=== PATIENT | male | born 1975 | race Caucasian/White ===

== ENCOUNTER 2017-04-02 08:58 | Observation (INO) | payer OTHER, MEDICAID ==
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
[2017-04-02] MEDS ORDERED: Lidocaine 1% 30 ML SDV INJECT ONE (09:28)
[2017-04-02] MEDS ORDERED: Diphtheria,Pertussis(Acell),Tetanus Vaccine 0.5 ML SDV IM ONE (09:28)
[2017-04-02] MEDS ORDERED: HYDROmorphone 1 MG/ML Syringe IM ONE (09:37)
[2017-04-02 09:38] LABS: CHLORIDE,CL 101 mmol/L (101-111); SODIUM,NA 135 mmol/L (135-145)
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
[2017-04-02] MEDS ORDERED: Sodium Chloride 0.9% 10 ML Syringe FLUSH PRN (14:10)
[2017-04-02] MEDS: Acetaminophen 325 MG Tab PO PRN (15:41)
[2017-04-03] MEDS: Acetaminophen 325 MG Tab PO PRN (00:34)
[2017-04-03] MEDS ORDERED: Enoxaparin 40 MG/0.4 ML Syringe SUBCUT SCH (09:00)
[2017-04-03] MEDS ORDERED: Lisinopril 10 MG Tab PO SCH (09:00)
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
[2017-04-03] MEDS ORDERED: Simvastatin 10 MG Tab PO SCH (21:00)
== END 2017-04-03 11:37 | disposition home or self-care (01) ==
LOC: DL.ED 08:58 → DL.MS 11:11 → UNDOADMOB 11:11 → DL.MS 12:17
PROVIDERS: ADMIT Internal Medicine; ATTEND Internal Medicine
DX: G45.4 Transient global amnesia (principal); S01.81XA Laceration without foreign body of other part of head, initial encounter; R51 Headache; I10 Essential (primary) hypertension; E78.5 Hyperlipidemia, unspecified; Z79.899 Other long term (current) drug therapy; V43.53XA Car driver injured in collision with pick-up truck in traffic accident, initial encounter; J30.2 Other seasonal allergic rhinitis
CPT/HCPCS: 36415; 70450; 72125; 73030; 80053; 81001; 85025; 90715; 96360; 96361; 96372; 99285; A9270; G0378; J1170; J1650; 90471; 96374

== ENCOUNTER 2021-08-11 06:19 | Day surgery (SDC) | payer BC ==
[~2021-08-11 06:19] MED LIST: Dextrose 5%-0.45% NaCl 1,000 ML IV SCH; Midazolam 1 MG/ML 2 ML SDV ONE; Sodium Chloride 0.9% 10 ML Syringe FLUSH SCH; fentaNYL 100 MCG/2 ML SDV ONE
[2021-08-11] MEDS ORDERED: Dextrose 5%-0.45% NaCl 1,000 ML IV SCH (07:00)
== END 2021-08-11 07:56 | disposition home or self-care (01) ==
LOC: DL.ENDO 06:19
PROVIDERS: ATTEND Internal Medicine Gastroenterology
DX: U07.1 COVID-19 (principal); Z53.09 Procedure and treatment not carried out because of other contraindication; Z87.19 Personal history of other diseases of the digestive system
CPT/HCPCS: 87635; J7042; U0002

== ENCOUNTER 2022-06-19 06:01 | Day surgery (SDC) | payer BC ==
[~2022-06-19 06:01] MED LIST changes: -Dextrose 5%-0.45% NaCl 1,000 ML IV SCH; -Midazolam 1 MG/ML 2 ML SDV ONE; +Sodium Chloride 0.9% 10 ML Syringe FLUSH PRN; -Sodium Chloride 0.9% 10 ML Syringe FLUSH SCH; -fentaNYL 100 MCG/2 ML SDV ONE
[2022-06-19] MEDS ORDERED: Midazolam 1 MG/ML 2 ML SDV IV ONE ×7 (06:02→07:34)
[2022-06-19] MEDS ORDERED: fentaNYL 100 MCG/2 ML SDV IV ONE ×3 (06:02→07:28)
[2022-06-19] MEDS ORDERED: fentaNYL 100 MCG/2 ML SDV ONE (06:24)
[2022-06-19] MEDS ORDERED: Midazolam 1 MG/ML 2 ML SDV ONE (06:24)
[2022-06-19] MEDS ORDERED: Sodium Chloride 0.9% 10 ML Syringe FLUSH PRN (07:44)
[2022-06-19] MEDS ORDERED: Dextrose 5%-0.45% NaCl 1,000 ML IV SCH (07:45)
[2022-06-19] MEDS ORDERED: Sodium Chloride 0.9% 10 ML Syringe FLUSH SCH (09:00)
== END 2022-06-19 08:55 | disposition home or self-care (01) ==
LOC: DL.ENDO 06:01
PROVIDERS: ATTEND Internal Medicine Gastroenterology
DX: K57.30 Diverticulosis of large intestine without perforation or abscess without bleeding (principal); K64.8 Other hemorrhoids; E66.09 Other obesity due to excess calories; I10 Essential (primary) hypertension; E78.5 Hyperlipidemia, unspecified; Z98.890 Other specified postprocedural states; Z68.38 Body mass index [BMI] 38.0-38.9, adult; Z91.048 Other nonmedicinal substance allergy status
CPT/HCPCS: 45378; J2250; J3010; J7042